=== PATIENT | male | born 1965 | race Caucasian/White ===

== ENCOUNTER 2017-01-14 08:18 | Emergency (ER) | payer MEDICAID ==
[~2017-01-14] VITALS: Ht 185.4 cm; Wt 105.0 kg
[2017-01-14] MEDS ORDERED: ACETAMINOPHEN500 M5 PO (09:09)
[2017-01-14] MEDS ORDERED: ELIQUIS5 MG PO (09:09)
[2017-01-14] MEDS ORDERED: ATORVASTATIN CA40 MG PO (09:10)
[2017-01-14] MEDS ORDERED: ADULT LOW DOSE81 MG PO (09:10)
[2017-01-14] MEDS ORDERED: EXCEDRIN EXTRA1 EACH PO (09:10)
[2017-01-14] MEDS ORDERED: KLONOPIN 0.5MG0.5 MG PO (09:11)
[2017-01-14] MEDS ORDERED: FLECAINIDE ACE100 MG PO (09:11)
[2017-01-14] MEDS ORDERED: FUROSEMIDE20 MG PO (09:12)
[2017-01-14] MEDS ORDERED: NEURONTIN300 MG/CAP PO (09:12)
[2017-01-14] MEDS ORDERED: HYDROCHLOROTHIA1 T15 PO (09:13)
[2017-01-14] MEDS ORDERED: FORTAMET500 M1 PO (09:13)
[2017-01-14] MEDS ORDERED: MOBIC7.5 MG PO (09:13)
[2017-01-14] MEDS ORDERED: LOPRESSOR 225 MG/TAB PO (09:14)
[2017-01-14] MEDS ORDERED: MINIPRESS2 MG PO (09:14)
[2017-01-14] MEDS ORDERED: MULTIVITAMIN1 SGL PO (09:14)
[2017-01-14] MEDS ORDERED: RANITIDINE HCL150 M1 PO (09:15)
[2017-01-14] MEDS ORDERED: SERTRALINE HYDR50 MG PO (09:15)
[2017-01-14] MEDS ORDERED: DESYREL 50MG50 MG PO (09:16)
[2017-01-14] MEDS ORDERED: IMITREX50 M1 PO (09:16)
[2017-01-14] MEDS ORDERED: CYCLOBENZAPRINE10 M1 PO (11:09)
[2017-01-14] MEDS ORDERED: OXYCODONE HCL10 M1 PO (11:09)
[2017-01-14 11:41] VITALS: BP 124/76
== END 2017-01-14 11:41 | disposition home or self-care (01) ==
LOC: ED 08:18
DX: S76.011A Strain of muscle, fascia and tendon of right hip, initial encounter (principal); S70.01XA Contusion of right hip, initial encounter; Z91.81 History of falling; Z79.82 Long term (current) use of aspirin; I48.91 Unspecified atrial fibrillation; E11.8 Type 2 diabetes mellitus with unspecified complications; Z79.84 Long term (current) use of oral hypoglycemic drugs; K21.9 Gastro-esophageal reflux disease without esophagitis; I49.9 Cardiac arrhythmia, unspecified; F43.10 Post-traumatic stress disorder, unspecified; F31.9 Bipolar disorder, unspecified; I45.6 Pre-excitation syndrome

== ENCOUNTER 2017-03-16 23:37 | Emergency (ER) | payer MEDICAID ==
[~2017-03-16] VITALS: Ht 185.4 cm; Wt 104.5 kg
[~2017-03-16 23:37] MED LIST: ACETAMINOPHEN500 M5 PO; ADULT LOW DOSE81 MG PO; ATORVASTATIN CA40 MG PO; CYCLOBENZAPRINE10 M1 PO; DESYREL 50MG50 MG PO; ELIQUIS5 MG PO; EXCEDRIN EXTRA1 EACH PO; FLECAINIDE ACE100 MG PO; FORTAMET500 M1 PO; FUROSEMIDE20 MG PO; HYDROCHLOROTHIA1 T15 PO; IMITREX50 M1 PO; KLONOPIN 0.5MG0.5 MG PO; LOPRESSOR 225 MG/TAB PO; MINIPRESS2 MG PO; MOBIC7.5 MG PO; MULTIVITAMIN1 SGL PO; NEURONTIN300 MG/CAP PO; OXYCODONE HCL10 M1 PO; RANITIDINE HCL150 M1 PO; SERTRALINE HYDR50 MG PO
[2017-03-17 00:40] VITALS: BP 93/63
== END 2017-03-17 00:40 | disposition home or self-care (01) ==
LOC: ED 23:37
DX: G89.29 Other chronic pain (principal); M54.5 Low back pain; I48.91 Unspecified atrial fibrillation; Z79.01 Long term (current) use of anticoagulants; I25.10 Atherosclerotic heart disease of native coronary artery without angina pectoris; F32.9 Major depressive disorder, single episode, unspecified; G43.909 Migraine, unspecified, not intractable, without status migrainosus; F43.10 Post-traumatic stress disorder, unspecified; F31.9 Bipolar disorder, unspecified

== ENCOUNTER 2017-09-18 10:18 | Emergency (ER) | payer MEDICAID ==
[~2017-09-18] VITALS: Wt 100.4 kg
[~2017-09-18 10:18] MED LIST changes: +DESYREL 100MG100 MG PO; -DESYREL 50MG50 MG PO; +HYDROCHLOROTHIA1 T14 PO; -HYDROCHLOROTHIA1 T15 PO; -SERTRALINE HYDR50 MG PO; +ZOLOFT 50MG50 MG PO
[2017-09-18 11:48] LABS: HEMATOCRIT 39.8 % (42.0-52.0); HEMOGLOBIN 13.5 g/dL (13.5-18.0); MEAN CELL VOLUME 87 fl (78-100); MEAN CORPUSCULAR HEMOGLOBIN 29 pg (27-31); MEAN CORPUSCULAR HGB CONC 34 g/dL (33-37); MEAN PLATELET VOLUME 11.9 fl (7.4-10.4); PLATELET COUNT 169 K/mm3 (130-400); RED BLOOD COUNT 4.59 M/mm3 (4.20-5.60); RED CELL DISTRIBUTION WIDTH 12.6 % (11.5-14.5); WHITE BLOOD COUNT 11.4 K/mm3 (4.8-10.8)
[2017-09-18 11:51] LABS: ALBUMIN 3.6 g/dL (3.5-5.0); BUN/CREATININE RATIO 18.8 (6.0-26.0); CALCIUM 9.2 mg/dL (8.4-10.2); PARTIAL THROMBOPLASTIN TIME 27.1 SECONDS (21.0-32.0); POTASSIUM 3.5 mmol/L (3.6-5.0); PROTHROMBIN TIME 11.1 SECONDS (9.0-12.0); TOTAL BILIRUBIN 1.4 mg/dL (0.2-1.3); TOTAL PROTEIN 6.9 g/dL (6.3-8.2)
[2017-09-18 12:01] LABS: LYMPHOCYTE 11 % (20-51); MONOCYTE 6 % (3-10); NEUTROPHILS 81 % (42-75)
[2017-09-18 12:32] LABS: URINE APPEARANCE HAZY; URINE BILIRUBIN NEGATIVE (NEGATIVE); URINE COLOR YELLOW; URINE KETONE 1+ (NEGATIVE); URINE PROTEIN(semi-quant) TRACE mg/dL (NEGATIVE)
[2017-09-18 12:33] LABS: URINE BLOOD TRACE (NEGATIVE); URINE LEUKOCYTE ESTERASE TRACE (NEGATIVE); URINE NITRATE NEGATIVE (NEGATIVE); URINE UROBILINOGEN NORMAL (NORMAL); URINE WBC >50 /hpf (0-3)
[2017-09-18 12:34] LABS: URINE MUCUS PRESENT (NOT PRESENT)
[2017-09-18] MEDS ORDERED: ABILIFY30 MG (12:40)
[2017-09-18] MEDS ORDERED: OMEGA-31000 M1 PO (12:42)
[2017-09-18] MEDS ORDERED: CYCLOBENZAPRINE10 M1 PO (12:42)
[2017-09-18] MEDS ORDERED: GLIPIZIDE10 M2 PO (12:43)
[2017-09-18] MEDS ORDERED: DAILY VALUE1 EACH PO (12:45)
[2017-09-18] MEDS ORDERED: PANTOPRAZOLE SO40 MG PO (12:46)
[2017-09-18] MEDS ORDERED: ACETAMINOPHEN-O1 TAB PO (12:46)
[2017-09-18] MEDS ORDERED: TRAMADOL 50 MG TAB PO (12:48)
[2017-09-18] MEDS ORDERED: BACTRIM DS TAB1 EACH PO (13:15)
[2017-09-18 13:30] VITALS: BP 102/57
== END 2017-09-18 13:53 | disposition home or self-care (01) ==
LOC: ED 10:18
PROVIDERS: Physician Assistant
DX: G81.94 Hemiplegia, unspecified affecting left nondominant side (principal); N39.0 Urinary tract infection, site not specified; E11.40 Type 2 diabetes mellitus with diabetic neuropathy, unspecified; I10 Essential (primary) hypertension; I48.91 Unspecified atrial fibrillation; I25.10 Atherosclerotic heart disease of native coronary artery without angina pectoris; F43.10 Post-traumatic stress disorder, unspecified; F31.9 Bipolar disorder, unspecified; F41.9 Anxiety disorder, unspecified; K21.9 Gastro-esophageal reflux disease without esophagitis; G47.00 Insomnia, unspecified; Z91.81 History of falling; Z87.891 Personal history of nicotine dependence; Z88.5 Allergy status to narcotic agent; Z88.0 Allergy status to penicillin; Z79.01 Long term (current) use of anticoagulants; Z79.82 Long term (current) use of aspirin; Z79.84 Long term (current) use of oral hypoglycemic drugs

== ENCOUNTER → 2017-12-02 | Outpatient (CLI) | payer MEDICAID ==
[~2017-12-02] MED LIST changes: +ABILIFY30 MG; +ACETAMINOPHEN-O1 TAB PO; +BACTRIM DS TAB1 EACH PO; +DAILY VALUE1 EACH PO; +GLIPIZIDE10 M2 PO; +OMEGA-31000 M1 PO; +PANTOPRAZOLE SO40 MG PO; +TRAMADOL 50 MG TAB PO
== END ==
LOC: RAD 06:54
DX: G45.9 Transient cerebral ischemic attack, unspecified (principal)

== ENCOUNTER → 2017-12-07 | Outpatient (CLI) | payer MEDICAID | LOC: RAD 09:36 | DX: M25.511 Pain in right shoulder (principal); G89.29 Other chronic pain ==

== ENCOUNTER 2017-12-22 08:00 | Outpatient (RCR) | payer MEDICAID | END 2017-12-22 08:30 | disposition home or self-care (01) | LOC: PT | DX: I69.954 Hemiplegia and hemiparesis following unspecified cerebrovascular disease affecting left non-dominant side (principal); R29.6 Repeated falls; Z91.81 History of falling ==

== ENCOUNTER → 2018-01-12 | Outpatient (CLI) | payer MEDICAID | LOC: LAB 15:08 | DX: K58.0 Irritable bowel syndrome with diarrhea (principal); R11.0 Nausea; R10.9 Unspecified abdominal pain ==

== ENCOUNTER → 2018-01-14 | Outpatient (CLI) | payer MEDICAID | LOC: LAB 13:56 | DX: R19.7 Diarrhea, unspecified (principal); R10.9 Unspecified abdominal pain; K58.9 Irritable bowel syndrome, unspecified; R11.0 Nausea ==

== ENCOUNTER 2018-03-14 11:09 | Emergency (ER) | payer MEDICAID ==
[~2018-03-14] VITALS: Ht 185.4 cm; Wt 89.5 kg
[2018-03-14 11:54] LABS: HEMATOCRIT 41.5 % (42.0-52.0); HEMOGLOBIN 13.8 g/dL (13.5-18.0); MEAN CELL VOLUME 89 fl (78-100); MEAN CORPUSCULAR HEMOGLOBIN 29 pg (27-31); MEAN CORPUSCULAR HGB CONC 33 g/dL (33-37); PLATELET COUNT 179 K/mm3 (130-400); RED BLOOD COUNT 4.69 M/mm3 (4.20-5.60); RED CELL DISTRIBUTION WIDTH 13.6 % (11.5-14.5); WHITE BLOOD COUNT 12.5 K/mm3 (4.8-10.8)
[2018-03-14 12:01] LABS: ALBUMIN 4.1 g/dL (3.5-5.0); BUN/CREATININE RATIO 15.4 (6.0-26.0); CALCIUM 9.2 mg/dL (8.4-10.2); POTASSIUM 3.8 mmol/L (3.6-5.0); TOTAL BILIRUBIN 0.5 mg/dL (0.2-1.3); TOTAL PROTEIN 7.4 g/dL (6.3-8.2)
[2018-03-14 12:06] LABS: MEAN PLATELET VOLUME 12.7 fl (7.4-10.4)
[2018-03-14 12:28] LABS: LYMPHOCYTE 11 % (20-51); MONOCYTE 4 % (3-10); NEUTROPHILS 83 % (42-75)
[2018-03-14 16:44] VITALS: BP 131/61
[2018-03-14] MEDS ORDERED: CLOPIDOGREL75 M2 PO (21:57)
== END 2018-03-14 16:29 | disposition home or self-care (01) ==
LOC: ED 11:09
PROVIDERS: Family Medicine
DX: S00.11XA Contusion of right eyelid and periocular area, initial encounter (principal); I95.1 Orthostatic hypotension; W19.XXXA Unspecified fall, initial encounter; Y92.009 Unspecified place in unspecified non-institutional (private) residence as the place of occurrence of the external cause; R40.2412 Glasgow coma scale score 13-15, at arrival to emergency department; Z79.01 Long term (current) use of anticoagulants; Z79.02 Long term (current) use of antithrombotics/antiplatelets; Z95.0 Presence of cardiac pacemaker; I10 Essential (primary) hypertension; J44.9 Chronic obstructive pulmonary disease, unspecified; I48.91 Unspecified atrial fibrillation; Z87.891 Personal history of nicotine dependence; I25.10 Atherosclerotic heart disease of native coronary artery without angina pectoris; E11.9 Type 2 diabetes mellitus without complications; Z79.899 Other long term (current) drug therapy; Z91.81 History of falling
CPT/HCPCS: J7030